=== PATIENT | female | born 1980 | race Caucasian/White ===

== ENCOUNTER → 2016-11-11 | Outpatient (CLI) | payer BC ==
--- NOTE | 2016-11-11 08:38 | RADIOLOGY REPORT (SQ) ---
EXAM DESCRIPTION: L SPINE WHOLE COMPLETED DATE/TIME: 11/11/2016 8:10 am REASON FOR STUDY: LOW BACK PAIN (M54.5) R13.10 DYSPHAGIA, UNSPECIFIED COMPARISON: None. NUMBER OF VIEWS: Five views including obliques. TECHNIQUE: AP, lateral, oblique, and sacral radiographic images acquired of the lumbar spine. LIMITATIONS: None. FINDINGS: MINERALIZATION: Normal. SEGMENTATION: Normal. No transitional anatomy. ALIGNMENT: Normal. VERTEBRAE: Maintained height. No fracture or worrisome bone lesion. DISCS: Multilevel mild disc space narrowing without significant osteophytes. POSTERIOR ELEMENTS: Pedicles and facets are intact. No pars defect or posterior arch defects. Mild facet arthropathy is present. HARDWARE: None in the spine. PARASPINAL SOFT TISSUES: Normal. PELVIS: Intact as visualized. No fractures or worrisome bone lesions. SI joints intact. OTHER: No other significant finding. IMPRESSION: Mild multilevel degenerative disc disease and facet arthropathy. No acute fracture or t raumatic subluxation. TECHNICAL DOCUMENTATION: JOB ID: [id number] [employer]- All Rights Reserved
--- NOTE | 2016-11-11 08:39 | RADIOLOGY REPORT (SQ) ---
EXAM DESCRIPTION: HIP RIGHT AP/LATERAL COMPLETED DATE/TIME: 11/11/2016 8:10 am REASON FOR STUDY: RIGHT HIP PAIN (M25.551) R13.10 DYSPHAGIA, UNSPECIFIED COMPARISON: None. NUMBER OF VIEWS: Two views. TECHNIQUE: AP pelvis and additional frog-leg view of the right hip. LIMITATIONS: None. FINDINGS: MINERALIZATION: Normal. RIGHT HIP: No fracture or dislocation. No worrisome bone lesions. No contour deformity. No joint sp samra narrowing. LEFT HIP: No fracture or dislocation. No worrisome bone lesions. PUBIS AND ISCHIUM: No fracture. PELVIS: No fracture. SACRUM: No fracture or dislocation. No worrisome bone lesions. LOWER LUMBAR SPINE: No fracture or dislocation. No worrisome bone lesions. No significant disc disea se. SOFT TISSUES: No findings. OTHER: No other significant finding. IMPRESSION: NEGATIVE STUDY OF THE RIGHT HIP. NO EXPLANATION FOR PAIN. TECHNICAL DOCUMENTATION: JOB ID: [id number] [employer]- All Rights Reserved
--- NOTE | 2016-11-16 16:26 | RADIOLOGY REPORT (SQ) ---
EXAM DESCRIPTION: BARIUM SWALLOW PHARYNX ONLY COMPLETED DATE/TIME: 11/11/2016 8:26 am REASON FOR STUDY: DYSPHAGIA (R13.10) R13.10 DYSPHAGIA, UNSPECIFIED COMPARISON: None. TECHNIQUE: Under fluoroscopic guidance, patient ingested effervescent granules followed by thick and thin barium. Fluoroscopic spot images and routine radiographic images acquired and stored on PACS. 12 MM BARIUM TABLET GIVEN: Yes. No significant delay in passage. LIMITATIONS: None. FLUOROSCOPY TIME: FLUORO TIME: 1 minutes 24 seconds of fluoroscopy was used. 10 images saved to PACS. FINDINGS: NEUROMUSCULAR COORDINATION OF SWALLOW: Normal. No aspiration. ESOPHAGEAL MOTILITY: Normal peristalsis. No esophageal spasm. ESOPHAGEAL MUCOSA: Mucosal filling defect seen along the right side of the proximal esophagus just di stal to the cricopharyngeus which may correspond to the patient's symptoms. Striations in the mucosa of the distal half esophagus which have the appearance of feline esophagus. GASTRO-ESOPHAGEAL JUNCTION: No hiatal hernia seen. Moderate free-flowing gastroesophageal reflux is noted. 12 mm barium tablet passed through the GE junction without delay. NON-GI TRACT STRUCTURES: No significant finding. OTHER: No other significant finding. IMPRESSION: 1. SMALL MUCOSAL FILLING DEFECT ALONG THE PROXIMAL ESOPHAGUS ON THE RIGHT JUST DISTAL T O THE CRICOPHARYNGEUS WHICH MAY REPRESENT A SMALL ULCER OR FOCAL INFLAMMATION. 2. MODERATE FREE-FLOWING GASTROESOPHAGEAL REFLUX IN DISTAL HALF OF THE ESOPHAGUS WITH FELINE APPEARA NCE WHICH MAY BE RELATED TO ESOPHAGITIS. COMMENT: Quality ID [id number]: Final reports for procedures using fluoroscopy that document radiation exp osure indices, or exposure time and number of fluorographic images (if radiation exposure indices are not available) TECHNICAL DOCUMENTATION: JOB ID: [id number] [employer]- All Rights Reserved
== END ==
LOC: RAD 07:51
PROVIDERS: ATTEND Family Medicine
DX: M25.551 Pain in right hip (principal); M54.5 Low back pain; R13.10 Dysphagia, unspecified; K21.9 Gastro-esophageal reflux disease without esophagitis; M51.36 Other intervertebral disc degeneration, lumbar region
CPT/HCPCS: 72110; 74210